=== PATIENT | female | born 1940 | race Caucasian/White ===

== ENCOUNTER 2016-07-02 20:21 | Emergency (ER) | payer OTHER ==
[~2016-07-02 20:21] MED LIST: CARTIA XT300 MG PO; CARVEDILOL12.5 M1 PO; ELIQUIS2.5 MG PO; GLU500 PO; GOOD SENSE ASPI81 M3 PO; LEVOTHYROXIN0.125 M2 PO; LIPI20 PO; LISINOPRIL5 MG PO; MAC100 PO; NATURAL IRON65 MG PO; VITAMIN C1000 M2 PO; VITAMIN D32000 I2 PO
[2016-07-03 00:02] VITALS: BP 123/67
== END 2016-07-03 00:02 | disposition home or self-care (01) ==
LOC: ED 20:21
DX: M54.2 Cervicalgia (principal); M25.512 Pain in left shoulder; F41.9 Anxiety disorder, unspecified; I48.91 Unspecified atrial fibrillation; I10 Essential (primary) hypertension; E03.9 Hypothyroidism, unspecified; E11.9 Type 2 diabetes mellitus without complications; Z88.0 Allergy status to penicillin; V49.9XXA Car occupant (driver) (passenger) injured in unspecified traffic accident, initial encounter; Y93.89 Activity, other specified; Y99.8 Other external cause status; Y92.89 Other specified places as the place of occurrence of the external cause

== ENCOUNTER 2018-02-18 13:32 | Emergency (ER) | payer OTHER ==
[~2018-02-18] VITALS: Ht 157.5 cm; Wt 73.5 kg
[2018-02-18 13:38] VITALS: BP 125/78
== END 2018-02-18 14:38 | disposition left against medical advice (07) ==
LOC: ED 13:32
DX: Z53.21 Procedure and treatment not carried out due to patient leaving prior to being seen by health care provider (principal)

== ENCOUNTER 2018-06-13 08:54 | Inpatient (IN) | payer OTHER ==
[~2018-06-13] VITALS: Ht 157.5 cm; Wt 72.3 kg
[2018-06-13 08:55] VITALS: Ht 157.5 cm; Wt 72.3 kg
[2018-06-13 10:24] LABS: microscopic required? YES; urine erythrocyte TRACE (NEGATIVE)
[2018-06-13 10:36] LABS: CALCIUM 9.2 mg/dL (8.5-10.1); CHLORIDE SERUM 104 mmol/L (98-107); CREATININE SERUM 1.6 mg/dL (0.6-1.0); GLUCOSE SERUM 120 mg/dL (74-106); POTASSIUM SERUM 4.4 mmol/L (3.5-5.1); SODIUM SERUM 142 mmol/L (136-145)
[2018-06-13 10:40] LABS: ALBUMIN 4.1 g/dL (3.4-5.0); ALKALINE PHOSPHATASE 79 U/L (46-116); ALT/SGPT 12 U/L (14-59); AMYLASE 69 U/L (25-115); AST/SGOT 17 U/L (15-37); BASOPHIL % 0.6 % (0-2); BILIRUBIN TOTAL 0.59 mg/dL (0.20-1.00); CHOLESTEROL 191 mg/dL (<200); LIPASE 246 IU/L (73-393); PLATELET COUNT 150 x10^3mcL (130-400); TOTAL PROTEIN, SERUM 8.1 g/dL (6.4-8.2)
[2018-06-13 10:42] LABS: HDL CHOLESTEROL 70 mg/dL (40-60); RED CELL DISTRIBUTION WIDTH 14.7 % (11.5-14.5)
[2018-06-13] MEDS ORDERED: METOPROLOL SUCC50 M2 PO (10:50)
[2018-06-13] MEDS ORDERED: LISINOPRIL40 MG PO (10:51)
[2018-06-13] MEDS ORDERED: TRADJENTA5 M1 (10:52)
[2018-06-13 13:38] VITALS: BP 153/61
[2018-06-13 16:19] VITALS: BP 139/69
[2018-06-13 20:07] VITALS: BP 139/62
[2018-06-14 05:15] VITALS: BP 156/66
[2018-06-14 06:27] LABS: BASOPHIL % 0.5 % (0-2); PLATELET COUNT 154 x10^3mcL (130-400); RED CELL DISTRIBUTION WIDTH 14.6 % (11.5-14.5)
[2018-06-14 06:59] LABS: ALBUMIN 3.9 g/dL (3.4-5.0); ALKALINE PHOSPHATASE 78 U/L (46-116); ALT/SGPT 12 U/L (14-59); AST/SGOT 19 U/L (15-37); BILIRUBIN TOTAL 0.85 mg/dL (0.20-1.00); CALCIUM 9.6 mg/dL (8.5-10.1); CARBON DIOXIDE 25.5 mmol/L (21-32); CHLORIDE SERUM 105 mmol/L (98-107); CREATININE SERUM 1.1 mg/dL (0.6-1.0); GLUCOSE SERUM 105 mg/dL (74-106); PHOSPHOROUS 3.2 mg/dL (2.5-4.9); POTASSIUM SERUM 4.6 mmol/L (3.5-5.1); SODIUM SERUM 142 mmol/L (136-145); TOTAL PROTEIN, SERUM 7.9 g/dL (6.4-8.2)
[2018-06-14 12:26] VITALS: BP 123/57
[2018-06-14 12:51] VITALS: BP 123/57
== END 2018-06-14 13:45 | disposition home or self-care (01) | DRG 377 ==
LOC: ED 08:54 → DU 12:26
PROVIDERS: Emergency Medicine; Internal Medicine; ADMIT Internal Medicine Pulmonary Disease
PROC: 0DBL8ZX Excision of Transverse Colon, Via Natural or Artificial Opening Endoscopic, Diagnostic (ICD-10-PCS; 2018-06-14)
PROC: 0DB48ZX Excision of Esophagogastric Junction, Via Natural or Artificial Opening Endoscopic, Diagnostic (ICD-10-PCS; principal; 2018-06-14 10:30)
PROC: 0DB68ZX Excision of Stomach, Via Natural or Artificial Opening Endoscopic, Diagnostic (ICD-10-PCS; 2018-06-14 10:30)
PROC: 0DBK8ZX Excision of Ascending Colon, Via Natural or Artificial Opening Endoscopic, Diagnostic (ICD-10-PCS; 2018-06-14 10:30)
DX: K57.31 Diverticulosis of large intestine without perforation or abscess with bleeding (principal); N17.0 Acute kidney failure with tubular necrosis; D12.2 Benign neoplasm of ascending colon; D12.3 Benign neoplasm of transverse colon; K22.70 Barrett's esophagus without dysplasia; K21.0 Gastro-esophageal reflux disease with esophagitis; K44.9 Diaphragmatic hernia without obstruction or gangrene; K29.70 Gastritis, unspecified, without bleeding; I11.9 Hypertensive heart disease without heart failure; I25.10 Atherosclerotic heart disease of native coronary artery without angina pectoris; E78.5 Hyperlipidemia, unspecified; E03.9 Hypothyroidism, unspecified; Z68.30 Body mass index [BMI] 30.0-30.9, adult; Z95.1 Presence of aortocoronary bypass graft; Z95.4 Presence of other heart-valve replacement; Z85.820 Personal history of malignant melanoma of skin; Z85.3 Personal history of malignant neoplasm of breast
CPT/HCPCS: 43235; 45378; 82962; G0480; J1200; J1610; J1956; J2175; J2250; J2270; J2310; J3010; J3490; J7030; J7120

== ENCOUNTER 2018-12-04 07:45 | Emergency (ER) | payer OTHER ==
[~2018-12-04] VITALS: Ht 157.5 cm; Wt 70.3 kg
[~2018-12-04 07:45] MED LIST changes: +LISINOPRIL40 MG PO; +METOPROLOL SUCC50 M2 PO; +TRADJENTA5 M1
[2018-12-04 07:50] VITALS: Ht 157.5 cm; Wt 70.3 kg
[2018-12-04 10:01] VITALS: BP 147/62
== END 2018-12-04 10:01 | disposition home or self-care (01) ==
LOC: ED 07:45
DX: S22.32XA Fracture of one rib, left side, initial encounter for closed fracture (principal); S80.212A Abrasion, left knee, initial encounter; I10 Essential (primary) hypertension; E11.9 Type 2 diabetes mellitus without complications; E78.00 Pure hypercholesterolemia, unspecified; Z88.0 Allergy status to penicillin; Z90.49 Acquired absence of other specified parts of digestive tract; Z90.89 Acquired absence of other organs; W18.39XA Other fall on same level, initial encounter; Y93.89 Activity, other specified; Y92.89 Other specified places as the place of occurrence of the external cause; Y99.8 Other external cause status
CPT/HCPCS: 90715

== ENCOUNTER 2019-02-07 10:25 | Emergency (ER) | payer OTHER ==
[~2019-02-07] VITALS: Ht 157.5 cm; Wt 68.5 kg
[2019-02-07 10:29] VITALS: BP 156/58; Ht 157.5 cm; Wt 68.5 kg
== END 2019-02-07 15:15 | disposition home or self-care (01) ==
LOC: ED 10:25
DX: S63.501A Unspecified sprain of right wrist, initial encounter (principal); S80.01XA Contusion of right knee, initial encounter; M85.861 Other specified disorders of bone density and structure, right lower leg; I10 Essential (primary) hypertension; E11.9 Type 2 diabetes mellitus without complications; E78.00 Pure hypercholesterolemia, unspecified; E03.9 Hypothyroidism, unspecified; I48.91 Unspecified atrial fibrillation; Z95.1 Presence of aortocoronary bypass graft; Z90.49 Acquired absence of other specified parts of digestive tract; Z90.89 Acquired absence of other organs; Z98.890 Other specified postprocedural states; Z88.0 Allergy status to penicillin; W01.0XXA Fall on same level from slipping, tripping and stumbling without subsequent striking against object, initial encounter; Y93.89 Activity, other specified; Y92.028 Other place in mobile home as the place of occurrence of the external cause; Y99.8 Other external cause status

== ENCOUNTER 2019-04-11 08:36 | Emergency (ER) | payer OTHER ==
[~2019-04-11] VITALS: Ht 157.5 cm; Wt 66.2 kg
[2019-04-11 08:49] VITALS: Ht 157.5 cm; Wt 66.2 kg
[2019-04-11 09:58] LABS: UA SPECIFIC GRAVITY 1.025 (1.005-1.035); microscopic required? YES; urine erythrocyte NEGATIVE (NEGATIVE)
[2019-04-11 10:09] VITALS: BP 143/49
[2019-04-11 10:36] LABS: CALCIUM 9.3 mg/dL (8.5-10.1); CARBON DIOXIDE 28.5 mmol/L (21-32); CHLORIDE SERUM 105 mmol/L (98-107); CREATININE SERUM 1.3 mg/dL (0.6-1.0); GLUCOSE SERUM 119 mg/dL (74-106); POTASSIUM SERUM 4.3 mmol/L (3.5-5.1); SODIUM SERUM 143 mmol/L (136-145)
[2019-04-11 10:40] LABS: BASOPHIL % 0.8 % (0-2); PLATELET COUNT 175 x10^3mcL (130-400); RED CELL DISTRIBUTION WIDTH 15.5 % (11.5-14.5)
[2019-04-11 10:43] LABS: ALBUMIN 3.8 g/dL (3.4-5.0); ALKALINE PHOSPHATASE 86 U/L (46-116); ALT/SGPT 19 U/L (14-59); AST/SGOT 16 U/L (15-37); TOTAL PROTEIN, SERUM 7.8 g/dL (6.4-8.2)
== END 2019-04-11 11:19 | disposition home or self-care (01) ==
LOC: ED 08:36
PROVIDERS: Emergency Medicine
DX: S00.83XA Contusion of other part of head, initial encounter (principal); I10 Essential (primary) hypertension; E11.9 Type 2 diabetes mellitus without complications; E78.00 Pure hypercholesterolemia, unspecified; E03.9 Hypothyroidism, unspecified; I48.91 Unspecified atrial fibrillation; Z90.49 Acquired absence of other specified parts of digestive tract; Z90.89 Acquired absence of other organs; Z98.890 Other specified postprocedural states; Z88.0 Allergy status to penicillin; W18.09XA Striking against other object with subsequent fall, initial encounter; Y93.89 Activity, other specified; Y92.89 Other specified places as the place of occurrence of the external cause; Y99.8 Other external cause status
CPT/HCPCS: 36415; Q0092

== ENCOUNTER 2020-02-18 19:52 | Inpatient (IN) | payer OTHER, SELFPAY ==
[~2020-02-18] VITALS: Ht 157.5 cm; Wt 66.0 kg
[~2020-02-18 19:52] MED LIST changes: +PROTONIX TR40 M1 PO; +[UNRECOGNIZED DRUG - OTHER]
[2020-02-18 20:58] LABS: BASOPHIL % 0.2 % (0-2); PLATELET COUNT 222 x10^3mcL (130-400); RED CELL DISTRIBUTION WIDTH 14.3 % (11.5-14.5)
[2020-02-18 21:16] LABS: ALBUMIN 3.6 g/dL (3.4-5.0); ALKALINE PHOSPHATASE 96 U/L (46-116); ALT/SGPT 50 U/L (14-59); AST/SGOT 65 U/L (15-37); BILIRUBIN TOTAL 0.9 mg/dL (0.20-1.00); C REACTIVE PROTEIN 9.8 mg/dL (<=0.9); CALCIUM 8.7 mg/dL (8.5-10.1); CARBON DIOXIDE 28.7 mmol/L (21-32); CREATININE SERUM 1.3 mg/dL (0.6-1.0); GLUCOSE SERUM 92 mg/dL (74-106); LACTIC DEHYDROGENASE (LDH) 320 U/L (100-190); TOTAL PROTEIN, SERUM 7.2 g/dL (6.4-8.2)
[2020-02-18 21:28] LABS: CHLORIDE SERUM 99 mmol/L (98-107); SODIUM SERUM 136 mmol/L (136-145)
[2020-02-18 21:58] LABS: UA SPECIFIC GRAVITY 1.025 (1.005-1.035); microscopic required? YES; urine erythrocyte NEGATIVE (NEGATIVE)
[2020-02-18 23:08] VITALS: BP 151/64
[2020-02-18 23:14] VITALS: Ht 157.5 cm; Wt 66.0 kg
[2020-02-19 07:13] LABS: BASOPHIL % 0.3 % (0-2); PLATELET COUNT 218 x10^3mcL (130-400); RED CELL DISTRIBUTION WIDTH 13.8 % (11.5-14.5)
[2020-02-19 07:23] LABS: ALKALINE PHOSPHATASE 86 U/L (46-116); ALT/SGPT 41 U/L (14-59); AST/SGOT 74 U/L (15-37); BILIRUBIN TOTAL 0.84 mg/dL (0.20-1.00); CARBON DIOXIDE 27.8 mmol/L (21-32); CHLORIDE SERUM 102 mmol/L (98-107); CREATININE SERUM 1.2 mg/dL (0.6-1.0); GLUCOSE SERUM 105 mg/dL (74-106); POTASSIUM SERUM 4.1 mmol/L (3.5-5.1); SODIUM SERUM 138 mmol/L (136-145); TOTAL PROTEIN, SERUM 7.4 g/dL (6.4-8.2)
[2020-02-19 07:24] LABS: ALBUMIN 3.1 g/dL (3.4-5.0)
[2020-02-19 08:33] VITALS: BP 116/44
[2020-02-19 13:07] VITALS: BP 151/60
[2020-02-19 16:01] VITALS: BP 129/64
[2020-02-19 21:13] VITALS: BP 112/56
[2020-02-20 06:00] VITALS: BP 117/63; BP 96/48
[2020-02-20 07:22] LABS: ALKALINE PHOSPHATASE 87 U/L (46-116); ALT/SGPT 39 U/L (14-59); AST/SGOT 46 U/L (15-37); BILIRUBIN TOTAL 0.92 mg/dL (0.20-1.00); CALCIUM 9.3 mg/dL (8.5-10.1); CARBON DIOXIDE 26.1 mmol/L (21-32); CHLORIDE SERUM 102 mmol/L (98-107); CREATININE SERUM 1.2 mg/dL (0.6-1.0); GLUCOSE SERUM 85 mg/dL (74-106); SODIUM SERUM 137 mmol/L (136-145); TOTAL PROTEIN, SERUM 7.6 g/dL (6.4-8.2)
[2020-02-20 07:28] LABS: BASOPHIL % 0.6 % (0-2); PLATELET COUNT 229 x10^3mcL (130-400); RED CELL DISTRIBUTION WIDTH 13.8 % (11.5-14.5)
[2020-02-20 09:18] VITALS: BP 105/78
[2020-02-20 13:53] VITALS: BP 125/64
[2020-02-20 17:26] VITALS: BP 123/52
[2020-02-20 20:33] VITALS: BP 119/59
[2020-02-21 05:08] VITALS: BP 128/57
[2020-02-21 07:04] LABS: PLATELET COUNT 261 x10^3mcL (130-400); RED CELL DISTRIBUTION WIDTH 13.8 % (11.5-14.5)
[2020-02-21 07:15] LABS: ALKALINE PHOSPHATASE 80 U/L (46-116); ALT/SGPT 27 U/L (14-59); AST/SGOT 29 U/L (15-37); BILIRUBIN TOTAL 0.6 mg/dL (0.20-1.00); CALCIUM 9.1 mg/dL (8.5-10.1); CARBON DIOXIDE 26.1 mmol/L (21-32); CHLORIDE SERUM 99 mmol/L (98-107); CREATININE SERUM 1.1 mg/dL (0.6-1.0); GLUCOSE SERUM 130 mg/dL (74-106); POTASSIUM SERUM 4.2 mmol/L (3.5-5.1); SODIUM SERUM 133 mmol/L (136-145); TOTAL PROTEIN, SERUM 7.4 g/dL (6.4-8.2)
[2020-02-21 08:37] VITALS: BP 139/83
[2020-02-21 12:12] VITALS: BP 139/73
[2020-02-21 17:28] VITALS: BP 113/68
[2020-02-21 20:32] VITALS: BP 138/70
[2020-02-22 05:41] VITALS: BP 139/75
[2020-02-22 07:23] LABS: BASOPHIL % 0.2 % (0-2); PLATELET COUNT 270 x10^3mcL (130-400); RED CELL DISTRIBUTION WIDTH 13.7 % (11.5-14.5)
[2020-02-22 07:57] LABS: ALKALINE PHOSPHATASE 79 U/L (46-116); ALT/SGPT 36 U/L (14-59); AST/SGOT 37 U/L (15-37); BILIRUBIN TOTAL 0.3 mg/dL (0.20-1.00); CALCIUM 9.1 mg/dL (8.5-10.1); CARBON DIOXIDE 27.4 mmol/L (21-32); CHLORIDE SERUM 102 mmol/L (98-107); CREATININE SERUM 1.3 mg/dL (0.6-1.0); GLUCOSE SERUM 132 mg/dL (74-106); POTASSIUM SERUM 4.4 mmol/L (3.5-5.1); SODIUM SERUM 135 mmol/L (136-145); TOTAL PROTEIN, SERUM 7.2 g/dL (6.4-8.2)
[2020-02-22 08:47] VITALS: BP 106/74
[2020-02-22 12:35] VITALS: BP 125/55
[2020-02-22 17:04] VITALS: BP 120/50
[2020-02-22 21:09] VITALS: BP 122/65
[2020-02-23 05:47] VITALS: BP 147/74
[2020-02-23 07:39] LABS: ALKALINE PHOSPHATASE 73 U/L (46-116); ALT/SGPT 42 U/L (14-59); AST/SGOT 35 U/L (15-37); BILIRUBIN TOTAL 0.35 mg/dL (0.20-1.00); CALCIUM 9.4 mg/dL (8.5-10.1); CARBON DIOXIDE 30.9 mmol/L (21-32); CHLORIDE SERUM 102 mmol/L (98-107); CREATININE SERUM 1.2 mg/dL (0.6-1.0); GLUCOSE SERUM 133 mg/dL (74-106); POTASSIUM SERUM 4.9 mmol/L (3.5-5.1); SODIUM SERUM 138 mmol/L (136-145); TOTAL PROTEIN, SERUM 7.3 g/dL (6.4-8.2)
[2020-02-23 07:59] VITALS: BP 138/66
[2020-02-23 08:09] LABS: BASOPHIL % 0.1 % (0-2); PLATELET COUNT 295 x10^3mcL (130-400); RED CELL DISTRIBUTION WIDTH 12.9 % (11.5-14.5)
[2020-02-23 12:17] VITALS: BP 138/73
[2020-02-23 15:57] VITALS: BP 148/80
[2020-02-23 20:35] VITALS: BP 134/70
[2020-02-24 05:13] VITALS: BP 147/77
[2020-02-24 07:30] LABS: ALKALINE PHOSPHATASE 73 U/L (46-116); ALT/SGPT 37 U/L (14-59); AST/SGOT 31 U/L (15-37); BILIRUBIN TOTAL 0.3 mg/dL (0.20-1.00); CALCIUM 9.2 mg/dL (8.5-10.1); CARBON DIOXIDE 26.6 mmol/L (21-32); CHLORIDE SERUM 99 mmol/L (98-107); CREATININE SERUM 1.1 mg/dL (0.6-1.0); GLUCOSE SERUM 179 mg/dL (74-106); POTASSIUM SERUM 4.4 mmol/L (3.5-5.1); SODIUM SERUM 136 mmol/L (136-145); TOTAL PROTEIN, SERUM 6.9 g/dL (6.4-8.2)
[2020-02-24 07:31] LABS: ALBUMIN 2.9 g/dL (3.4-5.0)
[2020-02-24 07:41] LABS: BASOPHIL % 0.1 % (0-2); PLATELET COUNT 294 x10^3mcL (130-400); RED CELL DISTRIBUTION WIDTH 12.8 % (11.5-14.5)
[2020-02-24 08:37] VITALS: BP 125/65
[2020-02-24 12:27] VITALS: BP 136/68
[2020-02-24] MEDS ORDERED: MACROBID100 MG PO (16:24)
[2020-02-24] MEDS ORDERED: DECADRON6 MG PO (16:31)
[2020-02-24 16:56] VITALS: BP 138/69
== END 2020-02-24 17:32 | disposition home or self-care (01) | DRG 177 ==
LOC: ED 19:52 → DU 21:28
PROVIDERS: Emergency Medicine; ADMIT Internal Medicine; ATTEND Internal Medicine
PROC: XW13325 Transfusion of Convalescent Plasma (Nonautologous) into Peripheral Vein, Percutaneous Approach, New Technology Group 5 (ICD-10-PCS; principal; 2020-02-21)
PROC: XW033E5 Introduction of Remdesivir Anti-infective into Peripheral Vein, Percutaneous Approach, New Technology Group 5 (ICD-10-PCS; 2020-02-21)
DX: U07.1 COVID-19 (principal); J12.89 Other viral pneumonia; J96.01 Acute respiratory failure with hypoxia; I50.43 Acute on chronic combined systolic (congestive) and diastolic (congestive) heart failure; N39.0 Urinary tract infection, site not specified; E11.9 Type 2 diabetes mellitus without complications; E78.5 Hyperlipidemia, unspecified; E78.00 Pure hypercholesterolemia, unspecified; I25.10 Atherosclerotic heart disease of native coronary artery without angina pectoris; G30.9 Alzheimer's disease, unspecified; B96.20 Unspecified Escherichia coli [E. coli] as the cause of diseases classified elsewhere; F02.80 Dementia in other diseases classified elsewhere, unspecified severity, without behavioral disturbance, psychotic disturbance, mood disturbance, and anxiety; I11.0 Hypertensive heart disease with heart failure; E03.9 Hypothyroidism, unspecified; I48.91 Unspecified atrial fibrillation; Z95.1 Presence of aortocoronary bypass graft; Z88.0 Allergy status to penicillin; Z90.12 Acquired absence of left breast and nipple; Z90.49 Acquired absence of other specified parts of digestive tract; Z83.3 Family history of diabetes mellitus; Z82.49 Family history of ischemic heart disease and other diseases of the circulatory system; Z82.61 Family history of arthritis; Z82.3 Family history of stroke; Z82.0 Family history of epilepsy and other diseases of the nervous system
CPT/HCPCS: 36600; 83880; 85378; 87804; G0378; J1100; J1580; J1644; J1650; J1956; J2185; J7040; U0003